=== PATIENT | male | born 1965 | race Caucasian/White ===

== ENCOUNTER 2020-09-19 07:11 | Outpatient (CLI) | payer BC | END 2020-09-19 07:12 | disposition home or self-care (01) | LOC: CSHCT 07:11 | PROVIDERS: ATTEND Urology | DX: C67.2 Malignant neoplasm of lateral wall of bladder (principal); N32.89 Other specified disorders of bladder | CPT/HCPCS: 74178 ==

== ENCOUNTER 2021-10-12 07:31 | Outpatient (CLI) | payer BC | END 2021-10-12 07:32 | disposition home or self-care (01) | LOC: CSHCT 07:31 | PROVIDERS: ATTEND Urology | DX: C67.2 Malignant neoplasm of lateral wall of bladder (principal) | CPT/HCPCS: 74178 ==

== ENCOUNTER 2023-10-07 08:04 | Outpatient (CLI) | payer BC ==
[2023-10-07] MEDS ORDERED: Iopamidol 370 76% 100 ML VIAL ONE (11:13)
== END 2023-10-07 08:05 | disposition home or self-care (01) ==
LOC: CSHCT 08:04
PROVIDERS: ATTEND Urology
DX: C67.2 Malignant neoplasm of lateral wall of bladder (principal)
CPT/HCPCS: 74178; Q9967